=== PATIENT | female | born 1945 | race Asian ===

== ENCOUNTER → 2017-04-22 | Outpatient (CLI) | payer MEDICARE, OTHER ==
--- NOTE | 2017-04-22 12:09 | RAD ---
DATE: 04/22/2017 EXAM: MAMMO ERIN SCREENING BILATERAL HISTORY: 72-year-old female for routine screening. COMPARISON: 2012 and 2010 mammogram This study was interpreted with the benefit of Computerized Aided Detection (CAD ). The breast parenchyma is dense, which could reduce the sensitivity of mammography. Breast parenchyma level density D. FINDINGS: Benign bilateral calcifications. No suspicious calcifications, spiculated mass or areas of architectural distortion. IMPRESSION: No suspicious findings. BI-RADS CATEGORY: 2 BENIGN FINDING(S) RECOMMENDED FOLLOW-UP: 12M 12 MONTH FOLLOW-UP PQRS compliance statement: Patient information was entered into a reminder system with a target due date 04/22/2018 for the next mammogram. Mammography is a sensitive method for finding small breast cancers, but it does not detect them all and is not a substitute for careful clinical examination. A negative mammogram does not negate a clinically suspicious finding and should not result in delay in biopsying a clinically suspicious abnormality. "Our facility is accredited by the [employer] Mammography [employer]." [email or web address]
== END | disposition home or self-care (01) ==
LOC: MAMMO 09:32
PROVIDERS: ATTEND Nurse Practitioner Family
DX: Z12.31 Encounter for screening mammogram for malignant neoplasm of breast (principal)
CPT/HCPCS: 77063; G0202; 77067

== ENCOUNTER → 2017-06-24 | Outpatient (CLI) | payer MEDICARE, OTHER ==
--- NOTE | 2017-06-24 11:36 | RAD ---
Bone densitometry scan, 06/24/2017: History: Follow-up osteopenia The lumbar spine and right hip were examined utilizing a DEXA technique. The bone mineral density in the lumbar spine as measured from the L1-L4 levels is 1.12 g/sq cm yielding a T score of -0.5. This is considered to be in the normal range. There has been improvement since the 09/08/2014 study at which time the lumbar spine T score was -1.2. The total T score at the right hip is -1.1 compatible with osteopenia. A T score of -1.4 was obtained from the left hip on the previous exam. IMPRESSION: 1. Improvement in the lumbar spine bone mineral density which is now within normal limits. 2. Mild osteopenia at the right hip.
== END | disposition home or self-care (01) ==
LOC: DXRAD 10:08
PROVIDERS: ATTEND Nurse Practitioner Family
DX: M85.88 Other specified disorders of bone density and structure, other site (principal); M81.0 Age-related osteoporosis without current pathological fracture
CPT/HCPCS: 77080

== ENCOUNTER 2017-08-20 17:03 | Emergency (ER) | payer MEDICARE, OTHER ==
[2017-08-20] MEDS ORDERED: ACETAMINOPHEN 325 MG TABLET PO ONE (18:00)
[2017-08-20] MEDS ORDERED: ACET-704 PO (18:04)
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
[2017-08-20 18:21] VITALS: BP 138/67
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
== END 2017-08-20 18:21 | disposition home or self-care (01) ==
LOC: ER 17:03
DX: S76.012A Strain of muscle, fascia and tendon of left hip, initial encounter (principal); M79.652 Pain in left thigh; E03.9 Hypothyroidism, unspecified; Z88.0 Allergy status to penicillin; Z88.6 Allergy status to analgesic agent; V89.2XXA Person injured in unspecified motor-vehicle accident, traffic, initial encounter; Y93.89 Activity, other specified; Y99.8 Other external cause status; Y92.488 Other paved roadways as the place of occurrence of the external cause
CPT/HCPCS: 73502; 99284

== ENCOUNTER → 2017-10-02 | Outpatient (CLI) | payer MEDICARE, OTHER ==
[~2017-10-02] MED LIST: ACET-704 PO
--- NOTE | 2017-10-02 15:12 | RAD ---
Exam: PA and lateral chest radiograph History: Cough. Comparison: None. Findings: Cardiomediastinal silhouette is within normal limits for size. Bilateral lung sanders are free of focal infiltrate. No pleural effusion is seen. Mild pectus excavatum is suspected. Impression: No acute cardiopulmonary process.
== END | disposition home or self-care (01) ==
LOC: PMG 14:36
PROVIDERS: ATTEND Nurse Practitioner Family
DX: R05 Cough (principal)
CPT/HCPCS: 71046

== ENCOUNTER → 2018-04-23 | Outpatient (CLI) | payer MEDICARE, OTHER ==
--- NOTE | 2018-04-23 16:07 | RAD ---
DATE: 04/23/2018 EXAM: MAMMO ERIN SCREENING BILATERAL HISTORY: Routine screening COMPARISON: 04/22/2017 This study was interpreted with the benefit of Computerized Aided Detection (CAD). The breast parenchyma is dense, which could reduce the sensitivity of mammography. Breast parenchyma level density D. FINDINGS: 2-D and 3-D tomosynthesis imaging was performed in CC and MLO projections. There are extremely dense fibroglandular tissue centrally in both breasts. No new or enlarging breast densities are seen. Minimal benign type calcification is present. No suspicious microcalcifications have developed. IMPRESSION: Stable mammograms without evidence of malignancy. BI-RADS CATEGORY: 2 BENIGN FINDING(S) RECOMMENDED FOLLOW-UP: 12M 12 MONTH FOLLOW-UP PQRS compliance statement: Patient information was entered into a reminder system with a target due date for the next mammogram. Mammography is a sensitive method for finding small breast cancers, but it does not detect them all and is not a substitute for careful clinical examination. A negative mammogram does not negate a clinically suspicious finding and should not result in delay in biopsying a clinically suspicious abnormality. "Our facility is accredited by the [employer] Mammography Program."
== END | disposition home or self-care (01) ==
LOC: MAMMO 09:55
PROVIDERS: ATTEND Physician Assistant Medical
DX: Z12.31 Encounter for screening mammogram for malignant neoplasm of breast (principal); E03.9 Hypothyroidism, unspecified; Z88.0 Allergy status to penicillin; Z88.6 Allergy status to analgesic agent
CPT/HCPCS: 77063; 77067

== ENCOUNTER → 2020-07-18 | Outpatient (CLI) | payer MEDICARE, OTHER ==
--- NOTE | 2020-07-18 15:21 | RAD ---
INDICATION: Osteoporosis screening. Postmenopausal screening follow-up COMPARISON: 06/24/2017 TECHNIQUE: Bone densitometry was performed through the lumbar spine and proximal femur. FINDINGS: Lumbar Spine: BMD: 1.18 T-Score: 0 Increased by 6 percent from prior Proximal Femur: BMD: 0.83 T-Score: -1.0 Increased by 2 percent from prior IMPRESSION: 1. Lumbar spine falls within the normal range. 2. Proximal femur falls within the osteopenic range. Electronically signed by: Addison Simeon MD (07/18/2020 3:18 PM) [id number]
--- NOTE | 2020-07-18 15:57 | RAD ---
DATE: 07/18/2020 1:20 PM EXAM: MAMMO ERIN SCREENING BILATERAL HISTORY: Screening COMPARISON: 04/23/2018, 04/22/2017 Bilateral full field craniocaudal and mediolateral oblique images were obtained using digital technique. This study was interpreted with the benefit of Computerized Aided Detection (CAD). FINDINGS: Breast Density: HETERO The breast parenchyma Is heterogeneously dense, which could reduce sensitivity of mammography. Breast parenchyma level C No suspicious masses, microcalcifications or architectural distortion is present to suggest malignancy in either breast. The visualized axillae are unremarkable. IMPRESSION: No mammographic evidence of malignancy. BI-RADS CATEGORY: 1 NEGATIVE RECOMMENDED FOLLOW-UP: 12M 12 MONTH FOLLOW-UP Annual screening mammography is recommended, unless clinically indicated sooner based on symptoms or change in physical exam. PQRS compliance statement: Patient information was entered into a reminder system with a target due date for the next mammogram. Mammography is a sensitive method for finding small breast cancers, but it does not detect them all and is not a substitute for careful clinical examination. A negative mammogram does not negate a clinically suspicious finding and should not result in delay in biopsying a clinically suspicious abnormality. "Our facility is accredited by the [employer] Mammography Program."
== END ==
LOC: DXRAD 13:22
PROVIDERS: ATTEND Physician Assistant Medical
DX: Z12.31 Encounter for screening mammogram for malignant neoplasm of breast (principal); M85.88 Other specified disorders of bone density and structure, other site; Z78.0 Asymptomatic menopausal state
CPT/HCPCS: 77063; 77067; 77080